=== PATIENT | male | born 1970 | race African-American/Black ===

== ENCOUNTER → 2019-12-11 | Outpatient (CLI) | payer OTHER ==
[2019-12-11 12:35] LABS: URINE BILIRUBIN NEGATIVE (Negative); URINE BLOOD NEGATIVE (Negative); URINE CLARITY CLEAR; URINE COLOR YELLOW; URINE GLUCOSE-RANDOM* NEGATIVE (Negative); URINE KETONES NEGATIVE (Negative); URINE LEUKOCYTES-REFLEX NEGATIVE (Negative); URINE NITRITE-REFLEX NEGATIVE (Negative); URINE PROTEIN (DIPSTICK) NEGATIVE (Negative); URINE SPECIFIC GRAVITY 1.015 (1.005-1.035); URINE UROBILINOGEN 0.2 E.U./dl (0.2-1.0)
[2019-12-11 12:36] LABS: ABSOLUTE NEUTROPHILS 3.1 thou/uL (1.4-8.2); BASOPHILS 0.4 % (0.0-2.0); EOSINOPHILS 2.1 % (0.0-3.0); HEMATOCRIT 43.6 % (42.0-52.0); HEMOGLOBIN 14.5 gm/dL (14.0-18.0); LYMPHOCYTES 38.6 % (24.0-44.0); MCHC 33.4 g/dL (28.0-37.0); MCV 92.9 fL (80.0-100.0); PLATELET COUNT 195 thou/uL (150-400); POLYS 51.9 % (36.0-66.0); RBC 4.69 mil/uL (4.50-6.00); RDW 13.2 % (10.5-14.5); WBC 5.9 thou/uL (4.0-11.0)
[2019-12-11 12:58] LABS: ALBUMIN 3.7 g/dL (3.4-5.0); BUN 15 mg/dL (7-18); CO2 33 mmol/L (21-32); CREATININE 1.1 mg/dL (0.7-1.3); GLUCOSE 105 mg/dL (74-106); TOTAL BILIRUBIN 0.9 mg/dL (0.2-1.0); TOTAL PROTEIN 7.1 g/dL (6.4-8.2)
[2019-12-11 13:06] LABS: TSH 2.452 uIU/mL (0.358-3.740)
[2019-12-11 13:15] LABS: ANION GAP 5 mmol/L (7-16); CALCIUM 8.9 mg/dL (8.5-10.1); CHLORIDE 100 mmol/L (98-107); CHOLESTEROL 169 mg/dL (<200); HDL CHOLESTEROL 71 mg/dL (>40); LDL CHOLESTEROL 85 mg/dL (<100); POTASSIUM 4.3 mmol/L (3.5-5.1); SGOT 17 U/L (15-37); SGPT 23 U/L (30-65); SODIUM 138 mmol/L (136-145); TC:HDL 2.4 Ratio (Not establshd); TRIGLYCERIDE 69 mg/dL (<150); VLDL 14 mg/dL (<40)
[2019-12-12 01:07] LABS: PSA 0.7 ng/mL (0.0-4.0); TESTOSTERONE* 370 ng/dL (264-916)
[2019-12-12 03:07] LABS: GLYCOHEMOGLOBIN (HGB A1C) 6.2 % (4.8-5.6)
== END ==
LOC: LABMALL 11:40
PROVIDERS: ATTEND Family Medicine
DX: G47.19 Other hypersomnia (principal); E11.9 Type 2 diabetes mellitus without complications; R53.83 Other fatigue; N52.39 Other and unspecified postprocedural erectile dysfunction; Z00.00 Encounter for general adult medical examination without abnormal findings

== ENCOUNTER → 2020-04-08 | Outpatient (CLI) | payer OTHER ==
--- NOTE | 2020-04-08 11:07 | 2DMMODE ---
[facility] [place] [address] 2 D/M-MODE ECHOCARDIOGRAM Name: NIRALI MARTINEZ Room #: REG OPHELIA Valencia#: [id number] Admission: 04/08/20 Attend Phys: Rikki Whitlock MD Discharge: Date of : 72 Report #: [id number] THIS REPORT FOR: cc: Rikki Whitlock MD, Neal A. MD Park, Jin S. MD ~ APPROVED REPORT Study performed: 04/08/2020 10:22:39 EXAM: Comprehensive 2D, Doppler, and color-flow Echocardiogram Patient Location: Out-Patient Room #: 2 Status: routine BSA: 2.84 HR: 78 bpm BP: 140/100 mmHg Rhythm: NSR Other Information Study Quality: Adequate Indications Hypertension/HDD 2D Dimensions RVDd: 35.49 mm IVSd: 9.26 (7-11mm) LVOT Diam: 23.65 (18-24mm) LVDd: 52.89 mm PWd: 9.13 (7-11mm) Ascending Ao: 34.92 (22-36mm) LVDs: 34.53 (25-40mm) Aortic Root: 30.95 mm IVC: 16.00 mm Volumes Left Atrial Volume (Systole) Single Plane 4CH: 48.77 mL Single Plane 2CH: 77.24 mL LA ESV Index: 25.00 mL/m2 Aortic Valve AoV Peak William.: 1.29 m/s AO Peak Gr.: 6.70 mmHg LVOT Max P.94 mmHg LVOT Max V: 0.99 m/s LIDA Vmax: 3.36 cm2 [facility] [address] [address] 2 D/M-MODE ECHOCARDIOGRAM Name: NIRALI MARTINEZ Room #: REG CL [facility]#: [id number] Admission: 04/08/20 Attend Phys: Rikki Whitlock, Discharge: Date of : 72 Report #: [id number] Mitral Valve E/A Ratio: 1.1 MV Decel. Time: 292.26 ms MV E Max William.: 1.02 m/s MV A William.: 0.95 m/s MV PHT: 84.76 ms IVRT: 119.95 ms Pulmonary Valve PV Peak William.: 0.90 m/s PV Peak Gr.: 3.23 mmHg Pulmonary Vein P Vein S: 0.39 m/s P Vein A: 0.22 m/s P Vein D: 0.33 m/s P Vein A Dur.: 101.5 msec P Vein S/D Ratio: 1.18 Left Ventricle The left ventricle is normal size. There is normal LV segmental wall motion. There is normal left ventricular wall thickness. Left ventricular systolic function is normal. The left ventricular ejection fraction is within the normal range. LVEF is 60-65%. Right Ventricle The right ventricle is normal size. The right ventricular systolic function is normal. Atria The left atrium size is normal. The right atrium size is normal. Aortic Valve The aortic valve is normal in structure. No aortic regurgitation is present. There is no aortic valvular stenosis. Mitral Valve The mitral valve is normal in structure. Trace mitral regurgitation. No evidence of mitral valve stenosis. Tricuspid Valve The tricuspid valve is normal in structure. There is no tricuspid valve regurgitation noted. Pulmonic Valve The pulmonary valve is normal in structure. There is no pulmonic valvular regurgitation. [facility] [place] [address] 2 D/M-MODE ECHOCARDIOGRAM Name: NIRALI MARTINEZ Room #: REG CL [facility]#: [id number] Admission: 04/08/20 Attend Phys: Rikki Whitlock, Discharge: Date of : 72 Report #: [id number] Great Vessels The aortic root is normal in size. IVC is normal in size and collapses >50% with inspiration. Pericardium There is no pericardial effusion. <Conclusion> The left ventricle is normal size. There is normal left ventricular wall thickness. Left ventricular systolic function is normal. The right ventricle is normal size. The left atrium size is normal. The aortic valve is normal in structure. Trace mitral regurgitation. There is no tricuspid valve regurgitation noted. <ELECTRONICALLY SIGNED> By: Eric Gonzalez MD 04/08/20 1107 06 06 Eric Gonzalez MD /TUAN
== END ==
LOC: CV 09:29
PROVIDERS: ATTEND Family Medicine
DX: I10 Essential (primary) hypertension (principal); R60.0 Localized edema

== ENCOUNTER 2020-08-29 18:48 | Emergency (ER) | payer OTHER ==
[~2020-08-29] VITALS: Ht 195.6 cm; Wt 158.8 kg
[2020-08-29] MEDS ORDERED: TRAZODONE HCL50 MG PO (18:56)
[2020-08-29] MEDS ORDERED: JANUMET 50-5001 EACH PO (18:56)
[2020-08-29] MEDS ORDERED: LISINOPRIL-HCT1 EACH PO (18:56)
[2020-08-29 19:10] LABS: ABSOLUTE NEUTROPHILS 3.6 thou/uL (1.4-8.2); BASOPHILS 0.8 % (0.0-2.0); HEMATOCRIT 38.8 % (42.0-52.0); HEMOGLOBIN 13.2 gm/dL (14.0-18.0); LYMPHOCYTES 41.3 % (24.0-44.0); MCH 30.8 pg (26.0-34.0); MCHC 34.1 g/dL (28.0-37.0); MCV 90.3 fL (80.0-100.0); PLATELET COUNT 205 thou/uL (150-400); POLYS 46.9 % (36.0-66.0); RDW 13.5 % (10.5-14.5); WBC 7.6 thou/uL (4.0-11.0)
[2020-08-29 19:17] LABS: ANION GAP 4 mmol/L (7-16); BUN 15 mg/dL (7-18); CALCIUM 8.5 mg/dL (8.5-10.1); CHLORIDE 102 mmol/L (98-107); CO2 31 mmol/L (21-32); CREATININE 1.3 mg/dL (0.7-1.3); GLUCOSE 132 mg/dL (74-106); POTASSIUM 3.9 mmol/L (3.5-5.1); SODIUM 137 mmol/L (136-145)
[2020-08-29 19:29] LABS: ALBUMIN 3.7 g/dL (3.4-5.0); LIPASE 188 U/L (73-393); SGOT 26 U/L (15-37); SGPT 31 U/L (16-63); TOTAL BILIRUBIN 0.3 mg/dL (0.2-1.0); TOTAL PROTEIN 7.6 g/dL (6.4-8.2); TROPONIN-I <0.06 ng/mL (<0.06)
[2020-08-29] MEDS ORDERED: ASA81BEC PO (21:50)
[2020-08-29 22:27] VITALS: BP 137/81
--- NOTE | 2020-08-30 07:18 | EKG ---
[address] [address] ELECTROCARDIOGRAM REPORT Name: NIRALI MARTINEZ [id number] Admission: 08/29/20 Attend Phys: Discharge: 08/29/20 Date of : 72 Report #: [id number] [facility] ED Test Date: 2020-08-29 Test Time: 18:53:25 Pat Name: NIRALI MARTINEZ Department: Room: Gender: Workers Compensation Claims Examiner: ZARA : 1970 Requested By: Osiel Douglas Order Number: [id number] MD: Nicholas Bolden Measurements Intervals [place] Rate: 74 P: 33 WA: 166 QRS: 0 QRSD: 101 T: 3 QT: 378 QTc: 420 Interpretive Statements Sinus rhythm Normal tracing No previous ECG available for comparison Electronically Signed On 08-30-2020 7:18:17 PECAN GROWER by Nicholas Bolden [email or web address] <ELECTRONICALLY SIGNED> By: Nicholas Bolden MD, [facility] 08/30/20 0718 1853 1853 Nicholas Bolden MD, FACC /EPI
== END 2020-08-29 22:27 | disposition home or self-care (01) ==
LOC: ER 18:48
PROVIDERS: Emergency Medicine
DX: R07.9 Chest pain, unspecified (principal); I10 Essential (primary) hypertension; E11.9 Type 2 diabetes mellitus without complications; Z79.899 Other long term (current) drug therapy

== ENCOUNTER → 2020-09-16 | Outpatient (CLI) | payer OTHER ==
[~2020-09-16] MED LIST: ASA81BEC PO; JANUMET 50-5001 EACH PO; LISINOPRIL-HCT1 EACH PO; TRAZODONE HCL50 MG PO
== END ==
LOC: SJCVCIMAG 08:02
PROVIDERS: ATTEND Internal Medicine
DX: I49.3 Ventricular premature depolarization (principal); R07.89 Other chest pain; I10 Essential (primary) hypertension; E11.9 Type 2 diabetes mellitus without complications; E78.5 Hyperlipidemia, unspecified; R53.83 Other fatigue; R06.00 Dyspnea, unspecified

== ENCOUNTER → 2020-09-16 | Outpatient (CLI) | payer OTHER | LOC: CAT 09:49 | PROVIDERS: ATTEND Internal Medicine | DX: Z13.6 Encounter for screening for cardiovascular disorders (principal); I25.10 Atherosclerotic heart disease of native coronary artery without angina pectoris; E78.00 Pure hypercholesterolemia, unspecified ==

== ENCOUNTER → 2020-10-19 | Outpatient (CLI) | payer OTHER | LOC: LAB 11:29 | PROVIDERS: ATTEND Nurse Practitioner | DX: Z53.8 Procedure and treatment not carried out for other reasons (principal) ==

== ENCOUNTER 2020-10-20 07:33 | Emergency (ER) | payer OTHER ==
[~2020-10-20] VITALS: Ht 198.1 cm; Wt 165.1 kg
== END 2020-10-20 09:00 | disposition home or self-care (01) ==
LOC: ER 07:33
DX: R53.1 Weakness (principal); Z20.822 Contact with and (suspected) exposure to COVID-19; Z53.21 Procedure and treatment not carried out due to patient leaving prior to being seen by health care provider

== ENCOUNTER → 2020-12-28 | Outpatient (CLI) | payer OTHER ==
[~2020-12-28] MED LIST changes: +FUROSEMIDE 40 M40 M1 PO; +OZEMPIC1 MG/0.71 SUBQ; +TESSALON PERLE100 MG PO
[2020-12-28 13:02] LABS: CREATININE 1.2 mg/dL (0.7-1.3); POTASSIUM 3.8 mmol/L (3.5-5.1)
== END ==
LOC: LAB 12:04
PROVIDERS: ATTEND Internal Medicine
DX: R53.82 Chronic fatigue, unspecified (principal)

== ENCOUNTER 2020-12-30 13:08 | Emergency (ER) | payer OTHER ==
[~2020-12-30] VITALS: Ht 198.1 cm; Wt 163.3 kg
[~2020-12-30 13:08] MED LIST changes: -FUROSEMIDE 40 M40 M1 PO; -OZEMPIC1 MG/0.71 SUBQ; -TESSALON PERLE100 MG PO
[2020-12-30 13:17] VITALS: BP 139/83
[2020-12-30] MEDS ORDERED: TESSALON PERLE100 MG PO (13:19)
[2020-12-30] MEDS ORDERED: FUROSEMIDE 40 M40 M1 PO (13:19)
[2020-12-30] MEDS ORDERED: TRAZODONE HCL50 MG PO (13:20)
[2020-12-30] MEDS ORDERED: OZEMPIC1 MG/0.71 SUBQ (13:20)
== END 2020-12-30 14:17 | disposition home or self-care (01) ==
LOC: ER 13:08
DX: U07.1 COVID-19 (principal); E11.9 Type 2 diabetes mellitus without complications; I10 Essential (primary) hypertension; Z79.899 Other long term (current) drug therapy

== ENCOUNTER → 2021-03-30 | Outpatient (CLI) | payer OTHER ==
[~2021-03-30] MED LIST changes: +FUROSEMIDE 40 M40 M1 PO; +LISINOPRIL-HCT1 EAC2 PO; +OZEMPIC1 MG/0.71 SUBQ; +TESSALON PERLE100 MG PO; +VITAMIN C500 M2 PO; +VITAMIN D325 MC3 PO; +ZINC30 M1 PO
[2021-03-30 12:04] LABS: HEMATOCRIT 38.1 % (42.0-52.0); HEMOGLOBIN 12.9 gm/dL (14.0-18.0); MCH 30.9 pg (26.0-34.0); MCHC 33.9 g/dL (28.0-37.0); RBC 4.19 mil/uL (4.50-6.00); RDW 13.9 % (10.5-14.5); WBC 7.1 thou/uL (4.0-11.0)
[2021-03-30 12:39] LABS: ALBUMIN 3.7 g/dL (3.4-5.0); CALCIUM 8.9 mg/dL (8.5-10.1); CREATININE 1.3 mg/dL (0.7-1.3); POTASSIUM 4.4 mmol/L (3.5-5.1); TOTAL BILIRUBIN 0.5 mg/dL (0.2-1.0); TOTAL PROTEIN 7.3 g/dL (6.4-8.2)
== END ==
LOC: PAC 10:43
PROVIDERS: ATTEND Surgery
DX: Z01.812 Encounter for preprocedural laboratory examination (principal); K44.9 Diaphragmatic hernia without obstruction or gangrene

== ENCOUNTER → 2021-04-11 | Outpatient (CLI) | payer OTHER ==
[~2021-04-11] MED LIST changes: +HYDROCODONE-ACE15 ML PO
== END ==
LOC: LAB 13:50
PROVIDERS: ATTEND Student in an Organized Health Care Education/Training Program
DX: Z20.822 Contact with and (suspected) exposure to COVID-19 (principal)

== ENCOUNTER 2021-04-12 09:18 | Inpatient (IN) | payer OTHER ==
[~2021-04-12] VITALS: Ht 198.1 cm; Wt 158.8 kg
--- NOTE | ~2021-04-12 | O ---
[facility] [place] [address] OPERATIVE REPORT Name: NIRALI MARTINEZ Room #: 441-P [facility] IN .R.#: [id number] Admission: 04/12/21 Attend Phys: Deangelo Gardner MD Discharge: Date of : 72 Report #: [id number] THIS REPORT FOR: cc: Rikki Whitlock MD, Neal A. MD Joseph, Sigi P. MD ~ cc: Rikki Whitlock MD DATE OF SERVICE: 04/12/2021 PREOPERATIVE DIAGNOSES: 1. Class 3 obesity. 2. Hypertension. 3. Sleep apnea. POSTOPERATIVE DIAGNOSES: 1. Class 3 obesity. 2. Hypertension. 3. Sleep apnea. OPERATIVE PROCEDURE DONE: Laparoscopic vertical sleeve gastrectomy. OPERATING SURGEON: Deangelo Gardner MD INDICATIONS FOR THE PROCEDURE: The patient is a 51-year-old male who presented with features of class 3 obesity with the above listed comorbidities. The patient was advised laparoscopic vertical sleeve gastrectomy and possible hiatal hernia repair. The patient showed understanding and agreed to proceed. PROCEDURE IN DETAIL: After explaining to the patient in detail and informed consent was obtained, the patient was identified in the preoperative holding area. The patient was transferred to the operating room and was placed in supine position. Sequential compression devices were placed for DVT prophylaxis. Preoperative antibiotics were given. After induction of anesthesia, the abdomen was prepped and draped in a sterile fashion. Through a left upper quadrant 1 cm incision and using Optiview technique peritoneal cavity was entered and pneumoperitoneum was created. Thereafter, through a 1 cm incision in the left mid abdomen another 5 mm trocar was placed, another 12 mm trocar was placed in the right mid abdomen, another 5 mm trocar was placed in the right subcostal region and through a 1 cm incision in the epigastrium, a Jayla retractor was introduced and the left lobe of the liver was retracted. Upon initial inspection, the patient did not have any features of a hiatal hernia. The liver appeared normal. I started to take down the gastroepiploic vessels using EnSeal. This was continued superiorly. The short gastric vessels were taken down. The gastrophrenic ligament was divided and the angle of His was mobilized. Distally, the gastroepiploic vessels were taken down up to about [address] [address] OPERATIVE REPORT Name: NIRALI MARTINEZ Room #: 441-P [facility] IN [facility]#: [id number] Admission: 04/12/21 Attend Phys: Deangelo Gardner MD Discharge: Date of : 72 Report #: [id number] to the pylorus. At this point, a 36-Belizean ViSiGi tube was inserted into the stomach. Stomach was suctioned out. This was placed along the lesser curve of the stomach and was placed on suction. Stomach was then divided in a vertical fashion with multiple Endo-MC Gypsy stapler, 3 green loads and 3 gold loads were used to divide the stomach in a vertical fashion to create a loose sleeve around this 36-Belizean bougie. An air leak test was performed by insufflation of the stomach and by irrigation of fluid along the staple line. There was no leak that was noted. Absolute hemostasis was ensured. Thorough saline irrigation was given. The sleeve gastrectomy specimen was retrieved. The 12 mm port site incision was closed with 0 Vicryl. Abdomen was then desufflated. All other incisions were closed with 4-0 Monocryl. Dermabond was applied. The patient was stable at the end of the procedure. The patient was awoken from anesthesia and was transferred to the recovery room in stable condition. Estimated blood loss was 2 mL. CONDITION: The patient is stable. FLUIDS GIVEN: Per Anesthesia notes. SPECIMEN SENT: Sleeve gastrectomy specimen. COMPLICATIONS: None. ANESTHESIA: General anesthesia. By: 1550 1622 Deangelo Gardner MD /nt
[~2021-04-12 09:18] MED LIST changes: -HYDROCODONE-ACE15 ML PO
[2021-04-12 10:12] VITALS: BP 141/83
--- NOTE | 2021-04-12 18:44 | NUR ---
[age] YEAR OLD MALE ADMITTED TO 4S ROOM 441. PT POST OP LAP GASTRIC SLEEVE. FIVE LAP SITE INTACT. PT ALERT AND ORIENTED TIMES FOUR. VSS, IVF INFUSING PER ORDER. PT DENIES PAIN AT THIS TIME. PT AT BEDSIDE DURING ADMISSION ASSESSMENT. WILL CONTINUE TO MONITOR.
[2021-04-12 19:28] VITALS: BP 153/104
[2021-04-13 01:06] LABS: GLYCOHEMOGLOBIN (HGB A1C) 6.8 % (4.8-5.6)
--- NOTE | 2021-04-13 03:52 | NUR ---
ASSUMED PT CARE AT 1900.PT'S AT BEDSIDE AT SHIFT CHANGE.PT STILL DROWSY FROM SURGERY BUT EASILY AROUSABLE.PT UP AND WALKED AROUND THE HALLWAY X2 SO FAR.PAIN GIVEN PER PT'S REQUEST.PT HAD EMESIS X1,MOSTLY DARK BROWN PHGLEM.[address] COVERED IWTH DERMABOND.IVF AND IV ABX GIVEN ORDERED.CALL LIGHT WITHIN REACH.
[2021-04-13 04:46] VITALS: BP 142/96
[2021-04-13 08:08] VITALS: BP 142/97
--- NOTE | 2021-04-13 10:32 | NUR ---
ORDERS RECEIVED FOR EVAL AND TREAT. OBSERVED Pt STAND AND AMBULATE IN HIS ROOM WITHOUT DIFFICULTY. SPOKE WITH Pt WHO STATES HE HAS ALREADY BEEN WALKING THE HALLS AND IS DECLINING A FORMAL P.T. EVAL. Pt APPEARS SAFE FOR HOME WHEN MEDICALLY CLEAR
[2021-04-13 11:12] VITALS: BP 143/71
--- NOTE | 2021-04-13 11:50 | NUR ---
PT ADMITTED RELATED TO LAP SLEEVE GASTRECTOMY. CM REVEIWED CHART AND SPOKE WITH CARE TEAM. CM MET WITH PT AT BEDSIDE THIS DAY. PT APPEARED TO BE A&O X4. CM ROLE INTRODUCED. PT INDICATED HE RESIDES IN AN APARTMENT ALONE WITH NO STEPS TO ENTER AND NO STEPS INSIDE. 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 PT INDICATED HE PLANS TO DC HOME WITH NO NEEDS ONE MEDICALLY STABLE. CM FOLLOWING
[2021-04-13] MEDS ORDERED: HYDROCODONE-ACE15 ML PO (12:11)
--- NOTE | 2021-04-13 14:17 | NUR ---
TODAY THIS PT IS GEARING UP FOR D/C HE HAS HAD SOME PAIN BUT HAS BEEN MEDICATED HE IS CURRENTLY ASLEEP AWAITING FOR D/C
[2021-04-13 14:21] VITALS: BP 143/71
--- NOTE | 2021-04-14 17:06 | PATH ---
[facility] [address] [place] [address] PATHOLOGY RPT PROCEDURE Name: NIRALI MARTINEZ Rosalia Room #: 441-P [facility] IN .R.#: [id number] Admission: 04/12/21 Date of : 72 Discharge: 04/13/21 Report #: [id number] Path Case #: [id number] LCA Accession Number: [id number] . 01 Material submitted: . stomach - PARTIAL STOMACH/SLEEVE GASTRECTOMY . 01 Clinical history: . MORBID OBESITY, ESSENTIAL HYPERTENSION, MIXED HYPERLIPIDEMIA LAPAROSCOPIC SLEEVE GASTRECTOMY . 02 Diagnosis: Stomach, partial sleeve gastrectomy: - No significant diagnostic abnormalities, history of morbid obesity. (IUV/db; 04/14/2021) LBQ 04/14/2021 1559 Local . 02 Electronically signed: . Michelle Herrera MD, Pathologist NPI- [id number] . 01 Gross description: . Fixative: Formalin Labeled: Partial stomach/sleeve gastrectomy Specimen received: Partial gastrectomy specimen with a stapled margin of resection Dimensions: 20.4 x 3.0 x 2.8 cm Serosa: Mcadoo-colbert to pink-eden, smooth, glistening Mucosa: Mcadoo-colbert to eden-brown with normal rugal folds Abnormalities: None identified Submitted representatively in cassette A1. (CAA; 04/13/2021) QAC/QAC 04/13/2021 1408 Local . 02 Pathologist provided ICD-10: E66.01, I10, E78.5 . 02 CPT . 193427 Specimen Comment: A courtesy copy of this report has been sent to [phone] Specimen Comment: [phone] Specimen Comment: Report sent to / DR MARTINEZ Performed at: [address] [id number] MD Amish Matute MD Phone: [phone] [facility] [address] [place] [address] PATHOLOGY RPT PROCEDURE Name: NIRALI MARTINEZ Room #: 441-P [facility] IN M.R.#: [id number] Admission: 04/12/21 Date of : 72 Discharge: 04/13/21 Report #: [id number] Path Case #: [id number] Performed at: 02 [facility] [address] [place], [place] [id number] MD Michelle Herrera MD Phone: [phone]
== END 2021-04-13 15:01 | disposition home or self-care (01) | DRG 621 ==
LOC: TBA 09:18 → 4S 09:18 → PRE 10:08 → OR 12:14 → EDSTATUS 12:15 → TBA 12:17 → PRE 13:03 → 4S 16:37
PROVIDERS: ADMIT Surgery; ATTEND Surgery
PROC: 0DB64Z3 Excision of Stomach, Percutaneous Endoscopic Approach, Vertical (ICD-10-PCS; principal; 2021-04-12)
DX: E66.01 Morbid (severe) obesity due to excess calories (principal); Z68.41 Body mass index [BMI] 40.0-44.9, adult; I10 Essential (primary) hypertension; Z79.82 Long term (current) use of aspirin; Z79.899 Other long term (current) drug therapy
CPT/HCPCS: 10100; 10102; 50010; 50101; 50222; 50386; 50555; 51489; 52265; 52266; 53307; 54022; 54118; 56462; 56525; 56526; 57092; 58574; 58587; 58588; 58869; 58870; 58911; 62110; 62900; 70005

== ENCOUNTER → 2021-05-08 | Outpatient (CLI) | payer OTHER ==
[~2021-05-08] MED LIST changes: +HYDROCODONE-ACE15 ML PO
[2021-05-08 13:08] LABS: ALBUMIN 3.6 g/dL (3.4-5.0); ANION GAP 5 mmol/L (7-16); BUN 17 mg/dL (7-18); CALCIUM 8.7 mg/dL (8.5-10.1); CHLORIDE 102 mmol/L (98-107); CHOLESTEROL 139 mg/dL (<200); CO2 30 mmol/L (21-32); CREATININE 1.1 mg/dL (0.7-1.3); GLUCOSE 93 mg/dL (74-106); HDL CHOLESTEROL 45 mg/dL (>40); LDL CHOLESTEROL 81 mg/dL (<100); POTASSIUM 4.2 mmol/L (3.5-5.1); SGOT 17 U/L (15-37); SGPT 24 U/L (30-65); SODIUM 137 mmol/L (136-145); TC:HDL 3.1 Ratio (Not establshd); TOTAL BILIRUBIN 0.6 mg/dL (0.2-1.0); TOTAL PROTEIN 7.4 g/dL (6.4-8.2); TRIGLYCERIDE 67 mg/dL (<150); VLDL 13 mg/dL (<40)
[2021-05-09 01:06] LABS: GLYCOHEMOGLOBIN (HGB A1C) 6.3 % (4.8-5.6)
== END ==
LOC: LAB 12:28
PROVIDERS: ATTEND Family Medicine
DX: E11.9 Type 2 diabetes mellitus without complications (principal); I10 Essential (primary) hypertension; E66.01 Morbid (severe) obesity due to excess calories; Z68.41 Body mass index [BMI] 40.0-44.9, adult